=== PATIENT | male | born 1955 | race Two or more races ===

== ENCOUNTER 2017-03-28 08:52 | Emergency (ER) | payer OTHER ==
--- NOTE | 2017-04-15 08:08 | ER ---
ADMIT: 03/28/2017 RM/LOC: ER [facility] MR#: [id number] [address] [facility] [address] [place] [id number] [address] [place] [address] Emergency Room Report SEX: M AGE: 62 : 1955 DATE: 03/28/2017 ADDENDUM: A 62-year-old white male with history of alcohol substance abuse coming in with pain essentially all over. He said chest pain is severe, but actually he was complaining more of his left knee. At the end of the his visit here, then he starts saying well, had this migraine too and they usually give me shot, and he made no mention of it on his initial visit. At this time, his CBC, chemistry, troponin is negative. We did do alcohol drug screen, which were negative at this time. EKG there is nothing there at this time as well. We x-rayed his left knee, may be a little degenerative change at the most but nothing more. He has good range of motion. [facility] CONDITION ON DISCHARGE: Good. Iban Gonzales MD/ mateo JOB #: [id number] CC: Iban Gonzales MD, Attending Physician [facility] Physician, Family Physician
== END 2017-03-28 10:45 | disposition home or self-care (01) ==
LOC: ER 08:52
DX: R07.89 Other chest pain (principal); M25.562 Pain in left knee; I25.10 Atherosclerotic heart disease of native coronary artery without angina pectoris; E11.9 Type 2 diabetes mellitus without complications; I10 Essential (primary) hypertension; I25.2 Old myocardial infarction; F32.9 Major depressive disorder, single episode, unspecified; F17.210 Nicotine dependence, cigarettes, uncomplicated; I73.9 Peripheral vascular disease, unspecified; Z86.73 Personal history of transient ischemic attack (TIA), and cerebral infarction without residual deficits; Z95.1 Presence of aortocoronary bypass graft; Z79.51 Long term (current) use of inhaled steroids; Z79.899 Other long term (current) drug therapy